=== PATIENT | male | born 1955 | race Caucasian/White ===

== ENCOUNTER 2017-12-25 03:49 | Emergency (ER) | payer OTHER ==
[2017-12-25] MEDS: LORAZEPAM 2 MG INJ IV (07:19)
[2017-12-25] MEDS: THIAMINE 100 MG TAB PO (07:19)
[2017-12-25] MEDS: FOLIC ACID 1 MG TAB PO (07:19)
[2017-12-25] MEDS: SOD CHLORIDE 0.9% 1,000 ML IV (07:20)
== END 2017-12-25 10:45 | disposition home or self-care (01) ==
LOC: E/R 03:49
DX: F10.230 Alcohol dependence with withdrawal, uncomplicated (principal); R40.2142 Coma scale, eyes open, spontaneous, at arrival to emergency department; R40.2252 Coma scale, best verbal response, oriented, at arrival to emergency department; R40.2362 Coma scale, best motor response, obeys commands, at arrival to emergency department
CPT/HCPCS: 96374; 99284-25

== ENCOUNTER 2017-12-28 13:35 | Emergency (ER) | payer OTHER ==
[2017-12-28 16:56] LABS: ADD MAN DIFF? NO
[2017-12-28] MEDS: DEXAMETHASONE 10 MG/ML 1 ML INJ IV (17:00)
[2017-12-28] MEDS: KETOROLAC 15 MG INJ IV (17:00)
[2017-12-28 17:01] LABS: WHITE BLOOD COUNT 10.5 10^3/ul (4.8-10.8)
[2017-12-28 17:01] LABS: BASOPHILS % 0.4 % (0.0-2.0); EOSINOPHILS # 0.1 10^3/ul (0.0-0.5); EOSINOPHILS % 0.9 % (0.0-7.0); HEMATOCRIT 32.9 % (42.0-52.0); HEMOGLOBIN 9.7 g/dl (14.0-18.0); LYMPHOCYTES # 1.7 10^3/ul (0.8-2.9); LYMPHOCYTES % 15.9 % (15.0-51.0); MEAN CORPUSCULAR HEMOGLOBIN 21.3 pg (29.0-33.0); MEAN CORPUSCULAR HGB CONC 29.5 g/dl (32.0-37.0); MEAN CORPUSCULAR VOLUME 72.1 fl (82.0-101.0); MEAN PLATELET VOLUME 9.6 fl (7.4-10.4); MONOCYTE # 0.4 10^3/ul (0.3-0.9); MONOCYTES % 3.8 % (0.0-11.0); NEUTROPHIL # 8.2 10^3/ul (1.6-7.5); NEUTROPHILS % 78.7 % (39.0-77.0); PLATELET COUNT 296 10^3/UL (140-415); RED BLOOD COUNT 4.56 10^6/ul (4.70-6.10); RED CELL DISTRIBUTION WIDTH 17.8 % (11.5-14.5)
[2017-12-28 17:04] LABS: ADD UMIC NO; UR ASCORBIC ACID 40 mg/dL (NEGATIVE); UR BILIRUBIN (Dip) NEGATIVE (NEGATIVE); UR BLOOD (Dip) NEGATIVE (NEGATIVE); UR CLARITY CLEAR (CLEAR); UR COLOR YELLOW (YELLOW); UR GLUCOSE (Dip) NEGATIVE (NEGATIVE); UR KETONES (Dip) NEGATIVE (NEGATIVE); UR LEUKOCYTE ESTERASE (Dip) NEGATIVE Leu/ul (NEGATIVE); UR NITRITE (Dip) NEGATIVE (NEGATIVE); UR SPECIFIC GRAVITY (Dip) 1.018 (1.003-1.030); UR TOTAL PROTEIN (Dip) NEGATIVE (NEGATIVE); UR UROBILINOGEN (Dip) NEGATIVE (NEGATIVE)
[2017-12-28] MEDS: IOHEXOL 300MG/ML 150 ML BTL (17:48)
[2017-12-28] MEDS: SOD CHLORIDE 0.9% 100 ML (17:48)
[2017-12-28 18:15] LABS: ALANINE AMINOTRANSFERASE 37 IU/L (13-69); ALBUMIN 4.2 g/dl (3.3-4.9); ALKALINE PHOSPHATASE 99 IU/L (42-121); ANION GAP 17 (8-16); ASPARTATE AMINO TRANSFERASE 21 IU/L (15-46); BILIRUBIN,INDIRECT 0.2 mg/dl (0-1.1); BILIRUBIN,TOTAL 0.2 mg/dl (0.2-1.3); BLOOD UREA NITROGEN 16 mg/dl (7-20); CARBON DIOXIDE 25 mmol/L (21-31); CHLORIDE 102 mmol/L (97-110); CREATININE 0.78 mg/dl (0.61-1.24); GLUCOSE 95 mg/dl (70-220); POTASSIUM 4.2 mmol/L (3.5-5.1); SODIUM 140 mmol/L (135-144); TOTAL PROTEIN 7.2 g/dl (6.1-8.1)
[2017-12-28] MEDS ORDERED: CLINDAMYCIN 300 MG INJ IV (18:30)
[2017-12-28] MEDS ORDERED: CLINDAMYCIN 600 MG/D5W (PMX) 50 ML IVPB (18:30)
[2017-12-28] MEDS ORDERED: CLINDAMYCIN 300 MG/D5W (PMX) 50 ML IVPB (18:30)
[2017-12-28] MEDS: CLINDAMYCIN 600 MG/D5W (PMX) 50 ML IVPB (19:15)
== END 2017-12-28 19:34 | disposition home or self-care (01) ==
LOC: FTE 13:35
DX: L03.115 Cellulitis of right lower limb (principal); J03.90 Acute tonsillitis, unspecified
CPT/HCPCS: 70491; 80053; 81003; 85025; 96374; 96375; 99285-25

== ENCOUNTER 2018-05-07 10:59 | Emergency (ER) | payer MEDICAID, OTHER ==
[2018-05-07] MEDS: LORAZEPAM 2 MG INJ IV (12:03)
[2018-05-07] MEDS: LACTATED RINGER'S 1,000 ML IV (12:03)
[2018-05-07] MEDS: THIAMINE 200 MG INJ IM (12:09)
== END 2018-05-07 13:45 | disposition home or self-care (01) ==
LOC: E/R 10:59
DX: F10.230 Alcohol dependence with withdrawal, uncomplicated (principal)
CPT/HCPCS: 96372; 96374; 99284-25

== ENCOUNTER 2019-05-17 16:57 | Emergency (ER) | payer OTHER, MEDICAID ==
[2019-05-17] MEDS: ONDANSETRON 4 MG INJ IV (17:26)
[2019-05-17 17:27] LABS: ADD MAN DIFF? NO
[2019-05-17] MEDS: LORAZEPAM 2 MG INJ IV (17:27)
[2019-05-17] MEDS: KETOROLAC 15 MG INJ IV (17:27)
[2019-05-17] MEDS: BELLADONNA/PHENOBARBITAL TAB PO (17:27)
[2019-05-17] MEDS: LIDOCAINE/MYLANTA 40 ML BTL PO (17:27)
[2019-05-17] MEDS: SOD CHLORIDE 0.9% 1,000 ML IV (17:27)
[2019-05-17 17:33] LABS: WHITE BLOOD COUNT 6.4 10^3/ul (4.8-10.8)
[2019-05-17 17:33] LABS: BASOPHIL # 0.1 10^3/ul (0.0-0.1); BASOPHILS % 0.8 % (0.0-2.0); EOSINOPHILS % 0.2 % (0.0-7.0); HEMATOCRIT 33.4 % (42.0-52.0); HEMOGLOBIN 10.1 g/dl (14.0-18.0); LYMPHOCYTES # 0.9 10^3/ul (0.8-2.9); LYMPHOCYTES % 13.3 % (15.0-51.0); MEAN CORPUSCULAR HEMOGLOBIN 21.2 pg (29.0-33.0); MEAN CORPUSCULAR HGB CONC 30.2 g/dl (32.0-37.0); MONOCYTE # 0.3 10^3/ul (0.3-0.9); MONOCYTES % 4.4 % (0.0-11.0); NEUTROPHIL # 5.2 10^3/ul (1.6-7.5); PLATELET COUNT 162 10^3/UL (140-415); RED BLOOD COUNT 4.77 10^6/ul (4.70-6.10); RED CELL DISTRIBUTION WIDTH 19.2 % (11.5-14.5)
[2019-05-17 17:54] LABS: ALANINE AMINOTRANSFERASE 26 IU/L (13-69); ALBUMIN 4.1 g/dl (3.3-4.9); ALKALINE PHOSPHATASE 87 IU/L (42-121); ANION GAP 19 (5-13); ASPARTATE AMINO TRANSFERASE 30 IU/L (15-46); BILIRUBIN,INDIRECT 0.6 mg/dl (0-1.1); BILIRUBIN,TOTAL 0.6 mg/dl (0.2-1.3); BLOOD UREA NITROGEN 8 mg/dl (7-20); CARBON DIOXIDE 19 mmol/L (21-31); CHLORIDE 101 mmol/L (97-110); CREATININE 0.76 mg/dl (0.61-1.24); Estimated GFR > 60 mL/min (>60); GLUCOSE 106 mg/dl (70-220); LIPASE 68 U/L (23-300); POTASSIUM 3.5 mmol/L (3.5-5.1); SODIUM 139 mmol/L (135-144); TOTAL PROTEIN 7.5 g/dl (6.1-8.1)
[2019-05-17 18:01] LABS: TROPONIN-I < 0.012 ng/ml (0.000-0.120)
== END 2019-05-17 19:36 | disposition home or self-care (01) ==
LOC: E/R 16:57
DX: F10.239 Alcohol dependence with withdrawal, unspecified (principal)
CPT/HCPCS: 36415; 71045; 80053; 80307; 83690; 84484; 85025; 96361; 96374; 96375; 99284-25